=== PATIENT | male | born 1975 | race Caucasian/White ===

== ENCOUNTER 2017-10-16 08:34 | Outpatient (CLI) | payer OTHER ==
--- NOTE | 2017-10-16 10:39 | MRI Report ---
Procedure Date: 10/16/2017 Accession Number: [id number] / [id number] Procedure: MRI - Cervical Spine W/O CPT Code: FULL RESULT: EXAM: MRI CERVICAL SPINE WITHOUT CONTRAST EXAM DATE: 10/16/2017 09:25 AM. CLINICAL HISTORY: 42-year-old with history of neck pain and upper extremity radiculopathy COMPARISONS: None. TECHNIQUE: Multiplanar, multisequence T1-weighted and fluid-sensitive sequences of the cervical spine without contrast. Other: None. FINDINGS: Neurologic Structures: The visualized posterior fossa structures are unremarkable. There is flattening of the right ventrolateral aspect of the cervical cord seen at C6-C7 with no definite T2 signal hyperintensity seen. Alignment: Straightening of the normal cervical lordosis. There is 2 mm of anterior subluxation of C5 on C6 and 2 mm of posterior subluxation of C6 on C7. Bone Marrow: There is endplate edema seen at C5-C6 and C6-C7 that may be degenerative in nature. There are T2 hyperintense lesions that demonstrate patchy T1 signal hyperintensity seen within the T1 and T2 vertebral bodies that may represent atypical hemangiomas. Interspace Levels/Facets: Mild endplate degenerative change with mild loss of disk height and disk desiccation seen throughout the cervical spine. C1-C2: Unremarkable. C2-C3: Tiny posterior disk osteophyte complex. Bilateral uncovertebral osteophyte and arthritic facet disease. No spinal canal stenosis. Mild left neural foramina narrowing. C3-C4: Tiny to small posterior disk osteophyte complex. Bilateral uncovertebral osteophyte and arthritic facet disease. No spinal canal stenosis. Mild right and [id number] left neural foraminal narrowing. C4-C5: Small broad-based disk osteophyte complex. Bilateral uncovertebral osteophyte and arthritic facet disease. Mild spinal canal stenosis. Mild bilateral neural foraminal narrowing. C5-C6: Small to moderate broad-based disk osteophyte complex abuts the ventral aspect of the cervical cord. Bilateral uncovertebral osteophyte and arthritic facet disease. Mild to moderate spinal canal stenosis. Severe bilateral neural foraminal narrowing C6-C7: Moderate broad-based disk osteophyte complex and ligamentum flavum thickening. Bilateral vertebral osteophyte and arthritic facet disease. Moderate spinal canal stenosis and effacement of right lateral recess. Severe bilateral neuroforaminal narrowing. C7-T1: Small central disk protrusion. Bilateral arthritic facet disease. Minimal spinal canal stenosis. No significant neural foraminal narrowing. Musculature: Normal. No edema or fatty atrophy. Other: The paravertebral and prevertebral soft tissues are normal. IMPRESSION: 1. Straightening of the normal cervical lordosis. 2. There is flattening of the right ventrolateral aspect of the cervical cord seen at C6-C7 with no definite T2 signal hyperintensity seen. 3. Multilevel degenerative changes. C2-C3: No spinal canal stenosis. Mild left neural foramina narrowing. C3-C4: No spinal canal stenosis. Mild right and [id number] left neural foraminal narrowing. C4-C5: Mild spinal canal stenosis. Mild bilateral neural foraminal narrowing. C5-C6: Mild to moderate spinal canal stenosis. Severe bilateral neural foraminal narrowing C6-C7: Moderate spinal canal stenosis and effacement of right lateral recess. Severe bilateral neuroforaminal narrowing. C7-T1: Minimal spinal canal stenosis. No significant neural foraminal narrowing. [facility]
== END 2017-10-16 08:35 | disposition home or self-care (01) ==
LOC: DI 08:34
PROVIDERS: ATTEND Student in an Organized Health Care Education/Training Program
DX: M50.30 Other cervical disc degeneration, unspecified cervical region (principal); M48.02 Spinal stenosis, cervical region
CPT/HCPCS: 72141